=== PATIENT | male | born 1930 | race Caucasian/White ===

== ENCOUNTER 2017-06-27 09:57 | Day surgery (SDC) | payer MEDICARE, OTHER ==
[~2017-06-27 09:57] MED LIST: KETOROLAC TROMETHAMINE 0.45% 4 DROP/0.4 ML DROPERETTE OS PRN
[2017-06-27] MEDS: CYCLOPENTOLATE 0.2%/PHENYLEPHRINE 1% OPH SOLN 2 ML OS PRN ×3 (10:49→11:17)
[2017-06-27] MEDS: TROPICAMIDE 1% OPH SOLN 3 ML OS PRN ×3 (10:49→11:17)
[2017-06-27] MEDS: BESIFLOXACIN HCL 0.6% OPH SUSP 5 ML BOTTLE OS PRN ×4 (10:50→12:20)
[2017-06-27] MEDS: TETRACAINE HCL 0.5% OPH SOLN 2 ML OS PRN ×3 (10:51→11:32)
[2017-06-27] MEDS ORDERED: LIDOCAINE 1% INJ-PF (10 MG/ML) 30 ML SDV ONE (11:12)
[2017-06-27] MEDS ORDERED: EPINEPHRINE INJ/PF 1 MG/1 ML AMPULE ONE (11:12)
[2017-06-27] MEDS ORDERED: CHONDR SU A NA/HYALUR INTRAOC KIT (SURGICARE) ONE (11:12)
[2017-06-27] MEDS ORDERED: MIDAZOLAM 2 MG/2 ML INJ ONE (11:18)
[2017-06-27] MEDS ORDERED: CHONDR SU A NA/HYALUR SOD 0.5 ML DISP.SYRIN ONE ×2 (12:03→12:14)
--- NOTE | 2017-06-27 13:34 | [facility] OPERATIVE REPORT E ---
[facility] Operative Report NAME: JOSEFA POLO AGE: 87Y DATE OF SURGERY: 06/27/2017 ROOM: PREOPERATIVE DIAGNOSES: 1. CATARACT, LEFT EYE. 2. MODERATE GLAUCOMA, BOTH EYES. POSTOPERATIVE DIAGNOSES: 1. CATARACT, LEFT EYE. 2. MODERATE GLAUCOMA, BOTH EYES. OPERATION: Cataract extraction with intraocular lens implant of the left eye plus iStent placement of the left eye. SURGEON: HELIO ANGELES M.D. ANESTHESIA: Topical. PROCEDURE: After obtaining appropriate consent, the patient's left eye was prepped and draped in sterile fashion as well as the surgeon in a sterile manner and cataract surgery was started. First a paracentesis blade was used to make a small side-port incision. Viscoelastic was used to inflate the anterior chamber. Next a 2.4 mm incision was made with the paracentesis blade. A continuous capsulorrhexis incision was made using a cystotome and Utrata forceps. Following this hydrodissection was carried out to make the lens fully loose and mobile and it was rotated 90 degrees. Following this, a rqndcq-bxq-nxcbvdo technique was used to phacoemulsify the lens with a CDE of 8.74. The remaining cortex was removed with irrigation/aspiration. Provisc was instilled into the capsular bag to inflate the bag. A SN60WF, 17.0 diopter lens was placed. The remaining viscoelastic material was removed with irrigation/aspiration. Following this, a 10-0 nylon suture was used to close the incision and it was found to be watertight. Vigamox was instilled in the eye and a protective shield was placed over the eye. The patient returned to the postoperative recovery in stable condition. After the cataract surgery was done to completion attention was directed to placement of an iStent. The patient's head was rotated away from the surgeon and the microscope was adjusted. The eye was filled with viscoelastic and viscoelastic was inserted on top of the cornea. The goniolens was placed and the iStent was used to insert in the nasal trabecular meshwork. Once the iStent was placed it was checked to make sure it was in excellent position and it was found to be in the proper place. Following this the viscoelastic was removed from the eye. The incisions were felt to be watertight and the patient woke up in postop recovery in stable condition. DICTATING PHYSICIAN: HELIO ANGELES M.D. [id number] PHY#: [id number] ID: [id number] JOB#: [id number] ACCT: [id number] cc:HELIO ANGELES M.D. >
--- NOTE | 2017-06-27 13:34 | [facility] DISCHARGE SUMMARY E ---
[facility] Discharge Summary NAME: JOSEFA POLO AGE: 87Y ADMITTED: 06/27/2017 DISCHARGED: 06/27/2017 FINAL DIAGNOSES: 1. Cataract, left eye. 2. Glaucoma of the left eye. DISCHARGE SUMMARY: This is an 87-year-old male who underwent cataract extraction and iStent placement of the left eye. The patient underwent surgery because he was having trouble seeing words on the TV and they were being treated with multiple drops for glaucoma. Diagnosed again with cataract, left eye, and glaucoma, left eye. The patient is to be on Besivance, Ilevro and Durezol at 3 p.m. and 8 p.m. and sleep with a rigid shield and on a regular diet. I will see them for their 1 day postoperative tomorrow. DICTATING PHYSICIAN: HELIO ANGELES M.D. [id number] PHY#: [id number] ID: [id number] JOB#: [id number] ACCT: [id number] cc:HELIO ANGELES M.D. >
== END 2017-06-27 13:10 | disposition home or self-care (01) ==
LOC: SC 09:57
PROVIDERS: ATTEND Internal Medicine
PROC: 08RK3JZ Replacement of Left Lens with Synthetic Substitute, Percutaneous Approach (ICD-10-PCS; principal; 2017-06-27 11:30)
DX: H25.13 Age-related nuclear cataract, bilateral (principal); H40.1131 Primary open-angle glaucoma, bilateral, mild stage; H04.123 Dry eye syndrome of bilateral lacrimal glands; E11.9 Type 2 diabetes mellitus without complications; I48.91 Unspecified atrial fibrillation; G47.30 Sleep apnea, unspecified; I11.0 Hypertensive heart disease with heart failure; I50.9 Heart failure, unspecified; Z88.0 Allergy status to penicillin; Z88.5 Allergy status to narcotic agent; Z79.01 Long term (current) use of anticoagulants; I25.2 Old myocardial infarction; Z79.84 Long term (current) use of oral hypoglycemic drugs
CPT/HCPCS: 0191T; 66984; 142; 82962; C1783; J0171; J2250; J3490; V2632